=== PATIENT | male | born 1975 | race American Indian/Alaskan Native ===

== ENCOUNTER 2017-11-30 00:39 | Inpatient (IN) | payer OTHER ==
[2017-11-30 01:43] LABS: Basophils # (Auto) 0.1 K/mm3 (0.0-0.1); Basophils % (Auto) 0.9 % (0.0-1.8); Eosinophils # (Auto) 0.1 K/mm3 (0.0-0.4); Eosinophils % (Auto) 0.7 % (0.0-4.3); Hematocrit 38.4 % (35.5-45.6); Hemoglobin 12.1 gm/dl (11.8-15.2); Lymphocytes # (Auto) 2.2 K/mm3 (1.2-5.4); Lymphocytes % (Auto) 27.2 % (13.4-35.0); Mean Corpuscular HGB Conc 32 % (32-34); Mean Corpuscular Volume 81 fl (84-94); Monocytes # (Auto) 0.4 K/mm3 (0.0-0.8); Monocytes % (Auto) 5.2 % (0.0-7.3); Platelet Count 446 K/mm3 (140-440); Red Blood Count 4.75 M/mm3 (3.65-5.03); Red Cell Distribution Width 19.2 % (13.2-15.2)
[2017-11-30 01:59] LABS: BUN/Creatinine Ratio 20; Blood Urea Nitrogen 16 mg/dL (9-20); Hemolysis Index 5
[2017-11-30 02:05] LABS: Mean Corpuscular Hemoglobin 26 pg (28-32)
[2017-11-30] MEDS ORDERED: XOPENEX IH ONE (02:12)
--- NOTE | 2017-11-30 02:15 | Emergency Department Report ---
HPI - General Chief Complaint: Dyspnea/Respdistress Time Seen by Provider: 11/30/17 01:27 - HPI HPI: 42-year-old male presents to the emergency department with a complaint of a 2 day history of shortness of breath. It is associated with some wheezing, a mixed dry and productive cough. He denies any fever, chest pain, back pain or any swelling to the lower extremities. He tried some nebulizer breathing treatments at home without much relief. He has a history of hypertension, asthma and non-insulin dependent diabetes. He presents with elevated blood pressure but admits to being out of his medications for the past 3-4 months. He is a tobacco smoker but denies any illicit drug use. No recent travel or sick contacts at home. He does not have a primary care physician. ED Past Medical Hx - Past Medical History Hx Hypertension: Yes Hx Diabetes: Yes Hx Psychiatric Treatment: Yes Hx Asthma: Yes Additional medical history: Bronchitis - Surgical History Additional Surgical History: Spleenectomy - Social History Smoking Status: Current Every Day Smoker Substance Use Type: None - Medications Home Medications: Home Medications Medication Instructions Recorded Confirmed Last Taken Type ALBUTEROL Inhaler [ProAir HFA 2 puff IH QID PRN #1 inha 07/05/13 01/26/15 Rx Inhaler] Atenolol [Tenormin] 25 mg PO DAILY 30 Days tablet 03/11/14 01/26/15 Unknown Rx Enalapril Maleate [Vasotec] 20 mg PO DAILY 30 Days tablet 03/11/14 01/26/15 Unknown Rx Hydrochlorothiazide [HCTZ] 25 mg PO QDAY 30 Days tablet 03/11/14 01/26/15 Unknown Rx metFORMIN [Glucophage] 500 mg PO BID 01/26/15 01/26/15 Unknown History metFORMIN [Glucophage] 500 mg PO BID 01/27/15 01/27/15 Unknown History ED Review of Systems ROS: Stated complaint: LIBAN Other details as noted in HPI Comment: All other systems reviewed and negative Constitutional: denies: chills, fever Eyes: denies: eye pain, eye discharge, vision change ENT: denies: ear pain, throat pain Respiratory: cough, shortness of breath, wheezing Cardiovascular: denies: chest pain, palpitations Gastrointestinal: denies: abdominal pain, nausea, diarrhea Genitourinary: denies: urgency, dysuria Musculoskeletal: denies: back pain, joint swelling, arthralgia Skin: denies: rash, lesions Neurological: denies: headache, weakness, paresthesias Physical Exam - Physical Exam Vital Signs: Vital Signs 11/30/17 11/30/17 11/30/17 00:59 02:08 02:09 Temperature 97.5 F L Pulse Rate 103 H Respiratory 18 18 Rate Blood Pressure 126/79 [Left] O2 Sat by Pulse 100 96 96 Oximetry Physical Exam: GENERAL: The patient is well-developed well-nourished. HENT: Normocephalic. Atraumatic. Patient has moist mucous membranes. EYES: Extraocular motions are intact. Pupils equal reactive to light bilaterally. NECK: Supple. Trachea is midline. CHEST/LUNGS: Moderate wheezing throughout the chest. There is some tachypnea but no accessory muscle use. There is no respiratory distress noted. HEART/CARDIOVASCULAR: Regular. There is no tachycardia. There is no murmur. ABDOMEN: Abdomen is soft, nontender. Patient has normal bowel sounds. There is no abdominal distention. SKIN: Skin is warm and dry. NEURO: The patient is awake, alert, and oriented. The patient is cooperative. The patient has no focal neurologic deficits. The patient has normal speech. MUSCULOSKELETAL: There is no tenderness or deformity. There is no limitation range of motion. There is no evidence of acute injury. ED Course Vital Signs 11/30/17 11/30/17 11/30/17 00:59 02:08 02:09 Temperature 97.5 F L Pulse Rate 103 H Respiratory 18 18 Rate Blood Pressure 126/79 [Left] O2 Sat by Pulse 100 96 96 Oximetry ED Medical Decision Making - Lab Data Result diagrams: 11/30/17 01:30 11/30/17 01:30 - EKG Data -: EKG Interpreted by Me EKG shows normal: sinus rhythm, axis (left axis deviation), intervals, QRS complexes (left anterior fascicular block), ST-T waves (nonspecific ST-T waves) Rate: tachycardia (105 bpm) - EKG Data When compared to previous EKG there are: previous EKG unavailable Interpretation: other (sinus tachycardia, left anterior fascicular block, nonspecific ST-T waves) - Radiology Data Radiology results: report reviewed, image reviewed interpreted by me: Chest x-ray does not show any acute process. There are no pleural effusions, obvious pneumonia and there is no pneumothorax. CT angiography of the chest does not show any pulmonary embolism or dissection or any other acute process. - Medical Decision Making Patient's been dealing with 2 days of shortness of breath. He is a smoker. He presents with moderate tachycardia and moderate bronchospasm. He received Solu- Medrol in route. He was given some Xopenex and magnesium here. Labs show an elevated d-dimer so CT angiography of the chest was done that does not show any pneumonia, pleural effusion, pulmonary embolism or dissection or any other acute processes. He also has a very elevated BNP level but does not have any lower extremity swelling. Blood pressure was 150/120 when I first saw the patient in the room. He has been out of his blood pressure medications for a couple of months. Despite the treatments given in route and in the emergency department, the patient still complains of this shortness of breath. He will be admitted to the hospital for further evaluation and treatment and has been accepted for admission by the hospitalist, Dr. Robles - Differential Diagnosis COPD, asthma, PE, pneumonia, dysrhythmia Critical Care Time: No Critical care attestation.: If time is entered above; I have spent that time in minutes in the direct care of this critically ill patient, excluding procedure time. ED Disposition Clinical Impression: Bronchospasm, Elevated brain natriuretic peptide (BNP) level, Tobacco use disorder Dyspnea Qualifiers: Dyspnea type: unspecified Qualified Code(s): R06.00 - Dyspnea, unspecified Hypertension Qualifiers: Hypertension type: essential hypertension Qualified Code(s): I10 - Essential ( primary) hypertension Disposition: OP ADMIT IP TO THIS HOSP Is pt being admited?: Yes Condition: Stable Instructions: Hypertension (ED) Referrals: PRIMARY CARE, [Primary Care Provider] - 3-5 Days Time of Disposition: 05:35
--- NOTE | 2017-11-30 03:11 | XRay Report ---
FINAL REPORT PROCEDURE: XR CHEST ROUTINE 2V TECHNIQUE: Chest radiograph anteroposterior view. CPT 85752 HISTORY: Shortness of breath COMPARISON: No prior studies are available for comparison. FINDINGS: Heart: Normal. Mediastinum/Vessels: Normal. Lungs/Pleural space: Normal. Bony thorax: No acute osseous abnormality. Life support devices: None. IMPRESSION: No acute cardiopulmonary abnormality.
--- NOTE | 2017-11-30 03:49 | Cat Scan Report ---
FINAL REPORT PROCEDURE: CT ANGIO CHEST TECHNIQUE: Computerized tomographic angiography of the chest was performed after the IV injection of iodinated nonionic contrast including image processing. The image data was postprocessed using 2-dimensional multiplanar reformatted (MPR) and 3-dimensional (MIP and/or volume rendered) techniques. HISTORY: SOB, elevated dimer COMPARISON: No prior studies are available for comparison. FINDINGS: Heart and pericardium: Normal. Thoracic aorta: Normal. Pulmonary vasculature: There is no evidence of pulmonary arterial emboli. Lymph nodes: No enlarged thoracic lymph nodes. Lungs: There is slight atelectasis in both lower lungs. The remainder of the lungs are clear. No effusion or pneumothorax. The central airway is patent. Pleural space: No effusion, thickening, or pneumothorax. Musculoskeletal structures: No significant abnormality. Upper abdominal structures: No significant abnormality. IMPRESSION: There is no evidence of pulmonary arterial emboli. The lungs are clear without infiltrate, effusion or pneumothorax.
[2017-11-30] MEDS ORDERED: MAGNESIUM SULFATE 2GM/50ML 2 GM/50 ML BAG IV ONE (04:02)
--- NOTE | 2017-11-30 07:33 | Event Note ---
Date: 11/30/17 See Dictated H/p in reports Ac resp failure Copd exacerbation
[2017-11-30] MEDS ORDERED: SODIUM CHLORIDE FLUSH SYRINGE 10 ML IV PRN (08:08)
[2017-11-30] MEDS ORDERED: ZOFRAN IV PRN (08:08)
[2017-11-30] MEDS ORDERED: MORPHINE IV PRN (08:08)
[2017-11-30] MEDS ORDERED: TYLENOL PO PRN (08:08)
[2017-11-30] MEDS ORDERED: DUONEB *Not for PRN Use IH (08:11)
[2017-11-30] MEDS ORDERED: PROAIR IH PRN (08:12)
--- NOTE | 2017-11-30 08:25 | Progress Note ---
Assessment and Plan Assessment and plan: Patient is a 42 yo man with a history of hypertension, dm type 2, depression, asthma and tobacco dependency who presented to [facility] ED with sob and cough. He admits to being out of his medications for the past 3-4 months. D-Dimer 1108.11==>CTA chest IMPRESSION: There is no evidence of pulmonary arterial emboli. The lungs are clear without infiltrate, effusion or pneumothorax. 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 Follow-up on current diagnosis sob and cough. Overnight uneventful. Patient denies any chest pain, nausea/vomiting or severe headaches. Imaging, nursing note, chart, labs and old chart reviewed. Discussed with patient. Hospitalist Physical - Physical exam Narrative exam: GEN: WDWN, NAD, Awake, Alert, Orientated x 3 HEENT: NCAT, EOMI, PERRL, OP Clear NECK: supple, no adenopathy, no thyromegaly, no JVD CVS/HEART: RRR, normal S1S2, pulses present bilaterally CHEST/LUNGS: +bilateral wheezing, diminish bs bilaterally, Symmetrical chest expansion, good air entry bilaterally GI/Abdomen: soft, NTND, good bowel sounds, no guarding or rebound /Bladder: no suprapubic tenderness, no CVA or paraspinal tenderness EXT/Skin: no c/c/e, no obvious rash MSK: FROM x 4 Neuro: CN 2-12 grossly intact, no new focal deficits Psych: calm - Constitutional Vitals: Temp Pulse Resp BP Pulse Ox 98.2 F 98 H 100 H 177/120 98 11/30/17 07:52 11/30/17 07:52 11/30/17 07:52 11/30/17 07:52 11/30/17 06:47 Results - Labs CBC & Chem 7: 11/30/17 01:30 11/30/17 01:30 Labs: Laboratory Last Values WBC 8.2 K/mm3 (4.5-11.0) 11/30/17 01:30 RBC 4.75 M/mm3 (3.65-5.03) 11/30/17 01:30 Hgb 12.1 gm/dl (11.8-15.2) 11/30/17 01:30 Hct 38.4 % (35.5-45.6) 11/30/17 01:30 MCV 81 fl (84-94) L 11/30/17 01:30 MCH 26 pg (28-32) L 11/30/17 01:30 MCHC 32 % (32-34) 11/30/17 01:30 RDW 19.2 % (13.2-15.2) H 11/30/17 01:30 Plt Count 446 K/mm3 (140-440) H 11/30/17 01:30 Lymph % (Auto) 27.2 % (13.4-35.0) 11/30/17 01:30 [place] % (Auto) 5.2 % (0.0-7.3) 11/30/17 01:30 Eos % (Auto) 0.7 % (0.0-4.3) 11/30/17 01:30 Baso % (Auto) 0.9 % (0.0-1.8) 11/30/17 01:30 Lymph # 2.2 K/mm3 (1.2-5.4) 11/30/17 01:30 [place] # 0.4 K/mm3 (0.0-0.8) 11/30/17 01:30 Eos # 0.1 K/mm3 (0.0-0.4) 11/30/17 01:30 Baso # 0.1 K/mm3 (0.0-0.1) 11/30/17 01:30 Seg Neutrophils % 66.0 % (40.0-70.0) 11/30/17 01:30 Seg Neutrophils # 5.4 K/mm3 (1.8-7.7) 11/30/17 01:30 D-Dimer 1108.11 ng/mlDDU (0-234) H 11/30/17 02:05 Sodium 135 mmol/L (137-145) L 11/30/17 01:30 Potassium 4.2 mmol/L (3.6-5.0) 11/30/17 01:30 Chloride 99.3 mmol/L (98-107) 11/30/17 01:30 Carbon Dioxide 24 mmol/L (22-30) 11/30/17 01:30 Anion Gap 16 mmol/L 11/30/17 01:30 BUN 16 mg/dL (9-20) 11/30/17 01:30 Creatinine 0.8 mg/dL (0.8-1.5) 11/30/17 01:30 Estimated GFR > 60 ml/min 11/30/17 01:30 BUN/Creatinine Ratio 20 % 11/30/17 01:30 Glucose 113 mg/dL (75-100) H 11/30/17 01:30 Calcium 8.0 mg/dL (8.4-10.2) L 11/30/17 01:30 Troponin T < 0.010 ng/mL (0.00-0.029) 11/30/17 02:05 NT-Pro-B Natriuret Pep 7768 pg/mL (0-450) H 11/30/17 02:05
[2017-11-30] MEDS ORDERED: D50W (25GM) Syringe IV PRN (08:26)
[2017-11-30] MEDS ORDERED: PULMICORT IH ONE (08:39)
[2017-11-30] MEDS: DUONEB *Not for PRN Use IH SCH ×3 (08:51→20:32)
[2017-11-30] MEDS: PULMICORT IH SCH ×2 (08:53→20:32)
[2017-11-30] MEDS ORDERED: PROVENTIL IH PRN (09:03)
[2017-11-30] MEDS ORDERED: GLUCOPHAGE PO SCH (10:00)
[2017-11-30] MEDS ORDERED: NON-FORMULARY (Enalapril Maleate [Vasotec] 20 MG) PO SCH (10:00)
[2017-11-30] MEDS: LOVENOX SUB-Q SCH (10:32)
[2017-11-30] MEDS: TENORMIN PO SCH (10:35)
[2017-11-30] MEDS: LEVAQUIN 750MG/150ML 750 MG/150 ML BAG IV SCH (10:35)
[2017-11-30] MEDS: HCTZ PO SCH (10:36)
[2017-11-30] MEDS: ZESTRIL PO SCH (10:36)
--- NOTE | 2017-11-30 10:38 | History and Physical Report ---
CHIEF COMPLAINT: Increasing shortness of breath for 2 days. HISTORY OF PRESENT ILLNESS: A 42-year-old male comes in with increasing shortness of breath for last 2 days. Cough productive. No fever, no chills. Increasing shortness of breath. Shortness of breath exacerbated with cough and dust. No relieving factors. Also, the patient is a tobacco smoker. PAST MEDICAL HISTORY: As mentioned, COPD, hypertension, bronchitis. PAST SURGICAL HISTORY: Splenectomy. SOCIAL HISTORY: Current everyday smoker. FAMILY HISTORY: Hypertension. CURRENT MEDICATIONS: Hydrochlorothiazide mg once a day, enalapril, Vasotec 20 mg once a day, atenolol 25 mg once a day. PHYSICAL EXAMINATION: GENERAL: Elderly male, cooperative during examination. VITAL SIGNS: Blood pressure is 126/79, temperature is 97.5, pulse 103, respirations are 18. HEENT: Unremarkable. NECK: Supple. Accessory muscles of respiration are prominent. LUNGS: Bilateral inspiratory and expiratory rhonchi present. Diminished air entry. CARDIOVASCULAR: S1, S2 heard. No gallop, no murmur, no rub. Apical impulse in left fifth intercostal space and midclavicular line. ABDOMEN: Soft and benign. No hepatosplenomegaly. No guarding, no rigidity. Hernial orifices are normal. EXTREMITIES: Good pedal pulses. No pedal edema. CENTRAL NERVOUS SYSTEM: Alert and oriented x 4, nonfocal exam. LABORATORY DATA: White count is 8200, H and H is 12.1 and 38.4, platelet count is 446,000. D-dimer is 1108. Electrolytes are normal. Sodium is slightly low at 135. BNP is 7758. ASSESSMENT AND PLAN: 1. Acute respiratory failure secondary to chronic obstructive pulmonary disease and congestive heart failure. The patient started on IV Solu-Medrol, IV antibiotics, and DuoNeb. 2. Congestive heart failure exacerbation. We will get echocardiogram for evaluation of ejection fraction and valve function. 3. Chronic obstructive pulmonary disease exacerbation as mentioned above Solu-Medrol and IV antibiotics. 4. Hypertension. Continue atenolol, enalapril, and hydrochlorothiazide 5. Diabetes type 2. The patient only on metformin. We will check the A1c and continue metformin. 6. Deep venous thrombosis prophylaxis, heparin. Gastrointestinal prophylaxis, famotidine. [facility]# [id number] BENITO/MICHELLE
[2017-11-30] MEDS: PERCOCET 5/325 PO PRN ×2 (10:43→20:53)
[2017-11-30] MEDS ORDERED: NORMODYNE IV PRN (11:48)
[2017-11-30] MEDS ORDERED: DUONEB *Not for PRN Use IH SCH (12:00)
[2017-11-30] MEDS: HumaLOG SUB-Q SCH ×3 (13:02→21:12)
[2017-11-30] MEDS: SODIUM CHLORIDE FLUSH SYRINGE 10 ML IV SCH ×2 (14:03→21:12)
[2017-11-30] MEDS: NORVASC PO SCH (14:44)
[2017-11-30] MEDS: CATAPRES PO SCH ×2 (14:45→21:11)
[2017-11-30] MEDS: APRESOLINE IV PRN ×2 (17:35→23:57)
[2017-12-01] MEDS: DUONEB *Not for PRN Use IH SCH ×4 (01:39→19:54)
[2017-12-01 06:37] LABS: Mean Corpuscular HGB Conc 31 % (32-34); Mean Corpuscular Volume 81 fl (84-94); Platelet Count 465 K/mm3 (140-440); Red Cell Distribution Width 18.6 % (13.2-15.2)
[2017-12-01 06:40] LABS: Alanine Aminotransferase 27 units/L (7-56); Albumin 2.6 g/dL (3.9-5); BUN/Creatinine Ratio 21; Blood Urea Nitrogen 17 mg/dL (9-20); Calcium 8.3 mg/dL (8.4-10.2); Hemolysis Index 3
[2017-12-01 06:42] LABS: Hematocrit 40.3 % (35.5-45.6); Hemoglobin 12.3 gm/dl (11.8-15.2); Mean Corpuscular Hemoglobin 25 pg (28-32)
[2017-12-01] MEDS: PULMICORT IH SCH ×2 (07:42→19:54)
[2017-12-01 07:47] LABS: Basophils % (Manual) 0 % (0.0-1.8); Total Cells Counted 100
[2017-12-01 07:48] LABS: Anisocytosis 1+; Band Neutrophils # (Manual) 2.5 K/mm3; Eosinophils % (Manual) 0 % (0.0-4.3); Platelet Estimate Consistent w Auto; Poikilocytosis 1+
[2017-12-01] MEDS: PERCOCET 5/325 PO PRN ×2 (08:43→21:22)
--- NOTE | 2017-12-01 08:44 | Progress Note ---
Assessment and Plan Assessment and plan: Patient is a 42 yo man with a history of hypertension, dm type 2, depression, asthma and tobacco dependency who presented to [facility] ED with sob and cough. He admits to being out of his medications for the past 3-4 months. D-Dimer 1108.11==>CTA chest IMPRESSION: There is no evidence of pulmonary arterial emboli. The lungs are clear without infiltrate, effusion or pneumothorax. pBNP 7768==>lungs clear on CTA chest -AE COPD: treat with steroids, nebs, iv abx -Accelerated hypertension with urgency: add antihypertensives -Elevated pBNP, ?cause: get ECHO -Type 2 DM: add ssi, ada, stopped metformin due to iv dye with cta, resume in 48 hours -Tobacco dependency: general counsel on stopping -Noncompliance: education and counselling -DVT ppx: sq lovenox bp severely elevated ordered iv hydralazine, added norvasc and oral clonidine==> bp better controlled Echo pending. History Interval history: Patient was seen and examined. Follow-up on current diagnosis sob and cough. Overnight uneventful. Patient denies any chest pain, nausea/vomiting or severe headaches. Imaging, nursing note, chart, labs and old chart reviewed. Discussed with patient. Hospitalist Physical - Physical exam Narrative exam: GEN: WDWN, NAD, Awake, Alert, Orientated x 3 HEENT: NCAT, EOMI, PERRL, OP Clear NECK: supple, no adenopathy, no thyromegaly, no JVD CVS/HEART: RRR, normal S1S2, pulses present bilaterally CHEST/LUNGS: +bilateral wheezing, diminish bs bilaterally, Symmetrical chest expansion, good air entry bilaterally GI/Abdomen: soft, NTND, good bowel sounds, no guarding or rebound /Bladder: no suprapubic tenderness, no CVA or paraspinal tenderness EXT/Skin: no c/c/e, no obvious rash MSK: FROM x 4 Neuro: CN 2-12 grossly intact, no new focal deficits Psych: calm - Constitutional Vitals: Temp Pulse Resp BP Pulse Ox 98.3 F 90 18 143/86 99 12/01/17 05:15 12/01/17 07:21 12/01/17 05:15 12/01/17 05:15 12/01/17 07:21 Results - Labs CBC & Chem 7: 12/01/17 05:32 12/01/17 05:32 Labs: Laboratory Last Values WBC 12.7 K/mm3 (4.5-11.0) H 12/01/17 05:32 RBC 5.00 M/mm3 (3.65-5.03) 12/01/17 05:32 Hgb 12.3 gm/dl (11.8-15.2) 12/01/17 05:32 Hct 40.3 % (35.5-45.6) 12/01/17 05:32 MCV 81 fl (84-94) L 12/01/17 05:32 MCH 25 pg (28-32) L 12/01/17 05:32 MCHC 31 % (32-34) L 12/01/17 05:32 RDW 18.6 % (13.2-15.2) H 12/01/17 05:32 Plt Count 465 K/mm3 (140-440) H 12/01/17 05:32 Lymph % (Auto) 27.2 % (13.4-35.0) 11/30/17 01:30 [place] % (Auto) 5.2 % (0.0-7.3) 11/30/17 01:30 Eos % (Auto) 0.7 % (0.0-4.3) 11/30/17 01:30 Baso % (Auto) 0.9 % (0.0-1.8) 11/30/17 01:30 Lymph # 2.2 K/mm3 (1.2-5.4) 11/30/17 01:30 [place] # 0.4 K/mm3 (0.0-0.8) 11/30/17 01:30 Eos # 0.1 K/mm3 (0.0-0.4) 11/30/17 01:30 Baso # 0.1 K/mm3 (0.0-0.1) 11/30/17 01:30 Add Manual Diff Complete 12/01/17 05:32 Total Counted 100 12/01/17 05:32 Seg Neutrophils % Millinery Designer 12/01/17 05:32 Seg Neuts % (Manual) 71.0 % (40.0-70.0) H 12/01/17 05:32 Band Neutrophils % 20.0 % 12/01/17 05:32 Lymphocytes % (Manual) 5.0 % (13.4-35.0) L 12/01/17 05:32 Reactive Lymphs % (Man) 0 % 12/01/17 05:32 Monocytes % (Manual) 4.0 % (0.0-7.3) 12/01/17 05:32 Eosinophils % (Manual) 0 % (0.0-4.3) 12/01/17 05:32 Basophils % (Manual) 0 % (0.0-1.8) 12/01/17 05:32 Metamyelocytes % 0 % 12/01/17 05:32 Myelocytes % 0 % 12/01/17 05:32 Promyelocytes % 0 % 12/01/17 05:32 Blast Cells % 0 % 12/01/17 05:32 Nucleated RBC % Not Reportable 12/01/17 05:32 Seg Neutrophils # 5.4 K/mm3 (1.8-7.7) 11/30/17 01:30 Seg Neutrophils # Man 9.0 K/mm3 (1.8-7.7) H 12/01/17 05:32 Band Neutrophils # 2.5 K/mm3 12/01/17 05:32 Lymphocytes # (Manual) 0.6 K/mm3 (1.2-5.4) L 12/01/17 05:32 Abs React Lymphs (Man) 0.0 K/mm3 12/01/17 05:32 Monocytes # (Manual) 0.5 K/mm3 (0.0-0.8) 12/01/17 05:32 Eosinophils # (Manual) 0.0 K/mm3 (0.0-0.4) 12/01/17 05:32 Basophils # (Manual) 0.0 K/mm3 (0.0-0.1) 12/01/17 05:32 Metamyelocytes # 0.0 K/mm3 12/01/17 05:32 Myelocytes # 0.0 K/mm3 12/01/17 05:32 Promyelocytes # 0.0 K/mm3 12/01/17 05:32 Blast Cells # 0.0 K/mm3 12/01/17 05:32 WBC Morphology Not Reportable 12/01/17 05:32 Hypersegmented Neuts Not Reportable 12/01/17 05:32 Hyposegmented Neuts Not Reportable 12/01/17 05:32 Hypogranular Neuts Not Reportable 12/01/17 05:32 Smudge Cells Not Reportable 12/01/17 05:32 Toxic Granulation Not Reportable 12/01/17 05:32 Toxic Vacuolation Not Reportable 12/01/17 05:32 Dohle Bodies Not Reportable 12/01/17 05:32 Pelger-Huet Anomaly Not Reportable 12/01/17 05:32 Amanda Rods Not Reportable 12/01/17 05:32 Platelet Estimate Consistent w auto 12/01/17 05:32 Clumped Platelets Not Reportable 12/01/17 05:32 Plt Clumps, EDTA Not Reportable 12/01/17 05:32 Large Platelets Not Reportable 12/01/17 05:32 Giant Platelets Not Reportable 12/01/17 05:32 Platelet Satelliting Not Reportable 12/01/17 05:32 Plt Morphology Comment Not Reportable 12/01/17 05:32 RBC Morphology Not Reportable 12/01/17 05:32 Dimorphic RBCs Not Reportable 12/01/17 05:32 Polychromasia Not Reportable 12/01/17 05:32 Hypochromasia Not Reportable 12/01/17 05:32 Poikilocytosis 1+ 12/01/17 05:32 Anisocytosis 1+ 12/01/17 05:32 Microcytosis Not Reportable 12/01/17 05:32 Macrocytosis Not Reportable 12/01/17 05:32 Spherocytes Not Reportable 12/01/17 05:32 Pappenheimer Bodies Not Reportable 12/01/17 05:32 Sickle Cells Not Reportable 12/01/17 05:32 Target Cells Not Reportable 12/01/17 05:32 Tear Drop Cells Not Reportable 12/01/17 05:32 Ovalocytes Not Reportable 12/01/17 05:32 Helmet Cells Not Reportable 12/01/17 05:32 [place] Bodies Not Reportable 12/01/17 05:32 [place] Rings Not Reportable 12/01/17 05:32 Al Cells Not Reportable 12/01/17 05:32 Bite Cells Not Reportable 12/01/17 05:32 Crenated Cell Not Reportable 12/01/17 05:32 Elliptocytes Not Reportable 12/01/17 05:32 Acanthocytes (Spur) Not Reportable 12/01/17 05:32 Rouleaux Not Reportable 12/01/17 05:32 Hemoglobin C Crystals Not Reportable 12/01/17 05:32 Schistocytes Not Reportable 12/01/17 05:32 Malaria parasites Not Reportable 12/01/17 05:32 Rudolph Bodies Not Reportable 12/01/17 05:32 Hem Pathologist Commnt No 12/01/17 05:32 D-Dimer 1108.11 ng/mlDDU (0-234) H 11/30/17 02:05 Sodium 136 mmol/L (137-145) L 12/01/17 05:32 Potassium 3.9 mmol/L (3.6-5.0) 12/01/17 05:32 Chloride 97.2 mmol/L (98-107) L 12/01/17 05:32 Carbon Dioxide 25 mmol/L (22-30) 12/01/17 05:32 Anion Gap 18 mmol/L 12/01/17 05:32 BUN 17 mg/dL (9-20) 12/01/17 05:32 Creatinine 0.8 mg/dL (0.8-1.5) 12/01/17 05:32 Estimated GFR > 60 ml/min 12/01/17 05:32 BUN/Creatinine Ratio 21 % 12/01/17 05:32 Glucose 114 mg/dL (75-100) H 12/01/17 05:32 POC Glucose 119 (70-105) H 12/01/17 05:39 Calcium 8.3 mg/dL (8.4-10.2) L 12/01/17 05:32 Total Bilirubin 0.40 mg/dL (0.1-1.2) 12/01/17 05:32 AST 35 units/L (5-40) 12/01/17 05:32 ALT 27 units/L (7-56) 12/01/17 05:32 Alkaline Phosphatase 275 units/L (35-129) H 12/01/17 05:32 Troponin T < 0.010 ng/mL (0.00-0.029) 11/30/17 02:05 NT-Pro-B Natriuret Pep 7768 pg/mL (0-450) H 11/30/17 02:05 Total Protein 7.4 g/dL (6.3-8.2) 12/01/17 05:32 Albumin 2.6 g/dL (3.9-5) L 12/01/17 05:32 Albumin/Globulin Ratio 0.5 % 12/01/17 05:32
[2017-12-01] MEDS: LEVAQUIN 750MG/150ML 750 MG/150 ML BAG IV SCH (10:35)
[2017-12-01] MEDS: TENORMIN PO SCH (11:00)
[2017-12-01] MEDS: ZESTRIL PO SCH (11:00)
[2017-12-01] MEDS: HCTZ PO SCH (11:00)
[2017-12-01] MEDS: CATAPRES PO SCH ×2 (11:00→21:22)
[2017-12-01] MEDS: NORVASC PO SCH (11:00)
[2017-12-01] MEDS: LOVENOX SUB-Q SCH (11:00)
[2017-12-01] MEDS ORDERED: Fluarix Quad 2017-2018(36 MOS+ IM ONE (12:00)
[2017-12-01] MEDS: SODIUM CHLORIDE FLUSH SYRINGE 10 ML IV SCH (21:23)
[2017-12-01] MEDS: HumaLOG SUB-Q SCH (21:23)
[2017-12-02] MEDS: DUONEB *Not for PRN Use IH SCH ×4 (02:01→19:37)
[2017-12-02] MEDS: PULMICORT IH SCH ×2 (07:29→19:37)
[2017-12-02] MEDS: NORVASC PO SCH (09:31)
[2017-12-02] MEDS: HCTZ PO SCH (09:31)
[2017-12-02] MEDS: SODIUM CHLORIDE FLUSH SYRINGE 10 ML IV SCH ×2 (09:32→21:36)
[2017-12-02] MEDS: HumaLOG SUB-Q SCH ×4 (09:33→21:36)
[2017-12-02] MEDS: LEVAQUIN 750MG/150ML 750 MG/150 ML BAG IV SCH (09:34)
[2017-12-02] MEDS: ZESTRIL PO SCH (09:38)
[2017-12-02] MEDS: LOVENOX SUB-Q SCH (09:38)
[2017-12-02] MEDS: PERCOCET 5/325 PO PRN (09:52)
--- NOTE | 2017-12-02 10:43 | Consultation ---
History of Present Illness Consult date: 12/02/17 Requesting physician: BHASKAR GIRALDO Consult reason: arrhythmia History of present illness: The patient is a 42 year old male with a history of hypertension, diabetes, asthma, tobacco abuse who presented with complaints of worsening shortness of breath, wheezing and productive cough over the past several days. He denies any chest pain or palpitations. BP in the ER was 181/128. He states that he has been out of his medications for the past 4 months. Troponin negative. BNP 7768. He was noted to have intermittent 2nd degree heart block Type II on the monitor overnight. Atenolol and clonidine have since been discontinued. Echo showed EF 30-35%, restrictive filling pattern, mild AR, moderate-severe MR, moderate to severe TR, RVSP 55mmHg. No previous diagnosis of heart failure or cardiomyopathy. Past History Past Medical History: diabetes, hypertension, other (asthma) Past Surgical History: Other (splenectomy) Social history: smoking. denies: alcohol abuse Family history: no significant family history Medications and Allergies Allergies Allergy/AdvReac Type Severity Reaction Status Date / Time No Known Allergies Allergy Verified 11/30/17 01:07 Home Medications Medication Instructions Recorded Confirmed Last Taken Type ALBUTEROL Inhaler [ProAir HFA 2 puff IH QID PRN #1 inha 07/05/13 12/02/17 Rx Inhaler] Atenolol [Tenormin] 25 mg PO DAILY 30 Days tablet 03/11/14 12/02/17 Unknown Rx Enalapril Maleate [Vasotec] 20 mg PO DAILY 30 Days tablet 03/11/14 12/02/17 Unknown Rx Hydrochlorothiazide [HCTZ] 25 mg PO QDAY 30 Days tablet 03/11/14 12/02/17 Unknown Rx metFORMIN [Glucophage] 500 mg PO BID 01/27/15 12/02/17 Unknown History Active Meds: Active Medications Acetaminophen (Tylenol) 650 mg PO Q4H PRN PRN Reason: Pain MILD(1-3)/Fever >100.5/LOZA Albuterol (Proventil) 2.5 mg IH Q4HRT PRN PRN Reason: Shortness Of Breath Last Admin: 11/30/17 23:43 Dose: 2.5 mg Albuterol/Ipratropium (Duoneb *Not For Prn Use*) 1 ampul IH Q6HRT [facility] Last Admin: 12/02/17 07:29 Dose: 1 ampul Amlodipine Besylate (Norvasc) 10 mg PO QDAY [facility] Last Admin: 12/02/17 09:31 Dose: 10 mg Budesonide (Pulmicort) 0.5 mg IH Q12HRT [facility] Last Admin: 12/02/17 07:29 Dose: 0.5 mg Dextrose (D50w (25gm) Syringe) 50 ml IV PRN PRN PRN Reason: Hypoglycemia Enoxaparin Sodium (Lovenox) 40 mg SUB-Q QDAY [facility] Last Admin: 12/02/17 09:38 Dose: 40 mg Hydralazine HCl (Apresoline) 10 mg IV Q4HR PRN PRN Reason: Blood Pressure Last Admin: 11/30/17 23:57 Dose: 10 mg Hydrochlorothiazide (Hctz) 25 mg PO QDAY [facility] Last Admin: 12/02/17 09:31 Dose: 25 mg Levofloxacin/Dextrose (Levaquin 750mg/150ml) 750 mg in 150 mls @ 100 mls/hr IV Q24HR [facility]; Protocol Last Admin: 12/02/17 09:34 Dose: 100 mls/hr Insulin Human Lispro (Humalog) 0 unit SUB-Q ACHS [facility]; Protocol Last Admin: 12/02/17 09:33 Dose: 2 unit Lisinopril (Zestril) 40 mg PO DAILY [facility] Last Admin: 12/02/17 09:38 Dose: 40 mg Methylprednisolone Sodium Succinate (Solu-Medrol) 125 mg IV Q8HR [facility] Last Admin: 12/01/17 21:22 Dose: 125 mg Morphine Sulfate (Morphine) 2 mg IV Q4H PRN PRN Reason: Pain, Moderate (4-6) Ondansetron HCl (Zofran) 4 mg IV Q8H PRN PRN Reason: Nausea And Vomiting Oxycodone/Acetaminophen (Percocet 5/325) 1 tab PO Q6H PRN PRN Reason: Pain, Moderate (4-6) Last Admin: 12/02/17 09:52 Dose: 1 tab Sodium Chloride (Sodium Chloride Flush Syringe 10 Ml) 10 ml IV BID [facility] Last Admin: 12/02/17 09:32 Dose: 10 ml Sodium Chloride (Sodium Chloride Flush Syringe 10 Ml) 10 ml IV PRN PRN PRN Reason: LINE FLUSH Review of Systems Constitutional: no fever, no chills Ears, nose, mouth and throat: no nasal congestion, no nasal discharge Cardiovascular: shortness of breath, dyspnea on exertion, no chest pain, no orthopnea, no palpitations Respiratory: cough, shortness of breath, dyspnea on exertion, wheezing Gastrointestinal: no abdominal pain, no nausea, no vomiting, no diarrhea Genitourinary Male: no dysuria, no hematuria Musculoskeletal: no neck stiffness, no neck pain Integumentary: no rash, no pruritis Neurological: no parathesias, no numbness, no tingling, no headaches Endocrine: no cold intolerance, no heat intolerance Hematologic/Lymphatic: no easy bruising, no easy bleeding Allergic/Immunologic: no urticaria, no wheezing Physical Examination Last Vital Signs Temp 98.0 F 12/02/17 11:57 Pulse 84 12/02/17 11:57 Resp 16 12/02/17 11:57 BP 174/118 12/02/17 11:57 Pulse Ox 98 12/02/17 11:57 General appearance: no acute distress HEENT: Positive: PERRL, Normocephaly, Mucus Membranes Moist Neck: Positive: neck supple, trachea midline Cardiac: Positive: Reg Rate and Rhythm, S1/S2, S3, Systolic Murmur Lungs: Positive: clear to auscultation Neuro: Positive: Grossly Intact Abdomen: Positive: Soft, Active Bowel Sounds. Negative: Tender Skin: Positive: Clear. Negative: Rash Extremities: Present: normal. Absent: edema Results 12/01/17 05:32 12/01/17 05:32 - Imaging and Cardiology Echo: report reviewed (11/2017: EF 30-35%, restrictive filling pattern, mild AR, moderate-severe MR, moderate to severe TR, RVSP 55mmHg) EKG: image reviewed EKG interpretations - Telemetry EKG Rhythm: Sinus Rhythm - EKG Sinus rhythms and dysrhythmias: sinus rhythm AV and intraventricular conduction: left anterior fascicular Repolarization changes or abnormalities: nonspecific abnormality, ST segment, and/or T wave Assessment and Plan Assessment/Plan: Intermittent 2nd degree heart block Type II Asymptomatic Atenolol and clonidine discontinued Continue to observe on the monitor Acute on chronic HFrEF EF 30-35% Initiate lasix 40mg IV daily Strict I/Os Continue lisinopril 40mg daily No beta piero due to intermittent HB Cardiomyopathy EF 30-35%-->new diagnosis Lexiscan stress test in am Hypertension Diabetes Asthma Tobacco abuse The patient has been seen in conjunction with Dr. Lancaster who agrees with the assessment and plan of care.
--- NOTE | 2017-12-02 12:22 | Progress Note ---
Assessment and Plan Assessment and plan: Patient is a 42 yo man with a history of hypertension, dm type 2, depression, asthma and tobacco dependency who presented to [facility] ED with sob and cough. He admits to being out of his medications for the past 3-4 months. D-Dimer 1108.11==>CTA chest IMPRESSION: There is no evidence of pulmonary arterial emboli. The lungs are clear without infiltrate, effusion or pneumothorax. pBNP 7768==>lungs clear on CTA chest -AE COPD: treat with steroids, nebs, iv abx -Accelerated hypertension with urgency: add antihypertensives -Elevated pBNP, suspected Acute systolic heart failure, poa: get ECHO pending -Type 2 DM: add ssi, ada, stopped metformin due to iv dye with cta, resume in 48 hours -Tobacco dependency: pastoral counselor on stopping -Noncompliance: education and counselling -DVT ppx: sq lovenox bp severely elevated ordered iv hydralazine, added norvasc and oral clonidine==> bp better controlled Echo pending. Patient had episode of bradycardia, ?CHB 1257 am, i looked at tele strip, looks likes type 2 av block, consulted Cardiology. Hold bblocker History Interval history: Patient was seen and examined. Follow-up on current diagnosis sob and cough. Overnight uneventful. Patient denies any chest pain, nausea/vomiting or severe headaches. Imaging, nursing note, chart, labs and old chart reviewed. Discussed with patient. Hospitalist Physical - Physical exam Narrative exam: GEN: WDWN, NAD, Awake, Alert, Orientated x 3 HEENT: NCAT, EOMI, PERRL, OP Clear NECK: supple, no adenopathy, no thyromegaly, no JVD CVS/HEART: RRR, normal S1S2, pulses present bilaterally CHEST/LUNGS: +bilateral wheezing, diminish bs bilaterally, Symmetrical chest expansion, good air entry bilaterally GI/Abdomen: soft, NTND, good bowel sounds, no guarding or rebound /Bladder: no suprapubic tenderness, no CVA or paraspinal tenderness EXT/Skin: no c/c/e, no obvious rash MSK: FROM x 4 Neuro: CN 2-12 grossly intact, no new focal deficits Psych: calm - Constitutional Vitals: Temp Pulse Resp BP Pulse Ox 98.0 F 84 16 174/118 98 12/02/17 11:57 12/02/17 11:57 12/02/17 11:57 12/02/17 11:57 12/02/17 11:57 General appearance: Present: no acute distress Results - Labs CBC & Chem 7: 12/01/17 05:32 12/01/17 05:32 Labs: Laboratory Last Values WBC 12.7 K/mm3 (4.5-11.0) H 12/01/17 05:32 RBC 5.00 M/mm3 (3.65-5.03) 12/01/17 05:32 Hgb 12.3 gm/dl (11.8-15.2) 12/01/17 05:32 Hct 40.3 % (35.5-45.6) 12/01/17 05:32 MCV 81 fl (84-94) L 12/01/17 05:32 MCH 25 pg (28-32) L 12/01/17 05:32 MCHC 31 % (32-34) L 12/01/17 05:32 RDW 18.6 % (13.2-15.2) H 12/01/17 05:32 Plt Count 465 K/mm3 (140-440) H 12/01/17 05:32 Lymph % (Auto) 27.2 % (13.4-35.0) 11/30/17 01:30 [place] % (Auto) 5.2 % (0.0-7.3) 11/30/17 01:30 Eos % (Auto) 0.7 % (0.0-4.3) 11/30/17 01:30 Baso % (Auto) 0.9 % (0.0-1.8) 11/30/17 01:30 Lymph # 2.2 K/mm3 (1.2-5.4) 11/30/17 01:30 Harding # 0.4 K/mm3 (0.0-0.8) 11/30/17 01:30 Eos # 0.1 K/mm3 (0.0-0.4) 11/30/17 01:30 Baso # 0.1 K/mm3 (0.0-0.1) 11/30/17 01:30 Add Manual Diff Complete 12/01/17 05:32 Total Counted 100 12/01/17 05:32 Seg Neutrophils % Shareholder 12/01/17 05:32 Seg Neuts % (Manual) 71.0 % (40.0-70.0) H 12/01/17 05:32 Band Neutrophils % 20.0 % 12/01/17 05:32 Lymphocytes % (Manual) 5.0 % (13.4-35.0) L 12/01/17 05:32 Reactive Lymphs % (Man) 0 % 12/01/17 05:32 Monocytes % (Manual) 4.0 % (0.0-7.3) 12/01/17 05:32 Eosinophils % (Manual) 0 % (0.0-4.3) 12/01/17 05:32 Basophils % (Manual) 0 % (0.0-1.8) 12/01/17 05:32 Metamyelocytes % 0 % 12/01/17 05:32 Myelocytes % 0 % 12/01/17 05:32 Promyelocytes % 0 % 12/01/17 05:32 Blast Cells % 0 % 12/01/17 05:32 Nucleated RBC % Not Reportable 12/01/17 05:32 Seg Neutrophils # 5.4 K/mm3 (1.8-7.7) 11/30/17 01:30 Seg Neutrophils # Man 9.0 K/mm3 (1.8-7.7) H 12/01/17 05:32 Band Neutrophils # 2.5 K/mm3 12/01/17 05:32 Lymphocytes # (Manual) 0.6 K/mm3 (1.2-5.4) L 12/01/17 05:32 Abs React Lymphs (Man) 0.0 K/mm3 12/01/17 05:32 Monocytes # (Manual) 0.5 K/mm3 (0.0-0.8) 12/01/17 05:32 Eosinophils # (Manual) 0.0 K/mm3 (0.0-0.4) 12/01/17 05:32 Basophils # (Manual) 0.0 K/mm3 (0.0-0.1) 12/01/17 05:32 Metamyelocytes # 0.0 K/mm3 12/01/17 05:32 Myelocytes # 0.0 K/mm3 12/01/17 05:32 Promyelocytes # 0.0 K/mm3 12/01/17 05:32 Blast Cells # 0.0 K/mm3 12/01/17 05:32 WBC Morphology Not Reportable 12/01/17 05:32 Hypersegmented Neuts Not Reportable 12/01/17 05:32 Hyposegmented Neuts Not Reportable 12/01/17 05:32 Hypogranular Neuts Not Reportable 12/01/17 05:32 Smudge Cells Not Reportable 12/01/17 05:32 Toxic Granulation Not Reportable 12/01/17 05:32 Toxic Vacuolation Not Reportable 12/01/17 05:32 Dohle Bodies Not Reportable 12/01/17 05:32 Pelger-Huet Anomaly Not Reportable 12/01/17 05:32 Amanda Rods Not Reportable 12/01/17 05:32 Platelet Estimate Consistent w auto 12/01/17 05:32 Clumped Platelets Not Reportable 12/01/17 05:32 Plt Clumps, EDTA Not Reportable 12/01/17 05:32 Large Platelets Not Reportable 12/01/17 05:32 Giant Platelets Not Reportable 12/01/17 05:32 Platelet Satelliting Not Reportable 12/01/17 05:32 Plt Morphology Comment Not Reportable 12/01/17 05:32 RBC Morphology Not Reportable 12/01/17 05:32 Dimorphic RBCs Not Reportable 12/01/17 05:32 Polychromasia Not Reportable 12/01/17 05:32 Hypochromasia Not Reportable 12/01/17 05:32 Poikilocytosis 1+ 12/01/17 05:32 Anisocytosis 1+ 12/01/17 05:32 Microcytosis Not Reportable 12/01/17 05:32 Macrocytosis Not Reportable 12/01/17 05:32 Spherocytes Not Reportable 12/01/17 05:32 Pappenheimer Bodies Not Reportable 12/01/17 05:32 Sickle Cells Not Reportable 12/01/17 05:32 Target Cells Not Reportable 12/01/17 05:32 Tear Drop Cells Not Reportable 12/01/17 05:32 Ovalocytes Not Reportable 12/01/17 05:32 Helmet Cells Not Reportable 12/01/17 05:32 [place] Bodies Not Reportable 12/01/17 05:32 [place] Rings Not Reportable 12/01/17 05:32 Al Cells Not Reportable 12/01/17 05:32 Bite Cells Not Reportable 12/01/17 05:32 Crenated Cell Not Reportable 12/01/17 05:32 Elliptocytes Not Reportable 12/01/17 05:32 Acanthocytes (Spur) Not Reportable 12/01/17 05:32 Rouleaux Not Reportable 12/01/17 05:32 Hemoglobin C Crystals Not Reportable 12/01/17 05:32 Schistocytes Not Reportable 12/01/17 05:32 Malaria parasites Not Reportable 12/01/17 05:32 Rudolph Bodies Not Reportable 12/01/17 05:32 Hem Pathologist Commnt No 12/01/17 05:32 D-Dimer 1108.11 ng/mlDDU (0-234) H 11/30/17 02:05 Sodium 136 mmol/L (137-145) L 12/01/17 05:32 Potassium 3.9 mmol/L (3.6-5.0) 12/01/17 05:32 Chloride 97.2 mmol/L (98-107) L 12/01/17 05:32 Carbon Dioxide 25 mmol/L (22-30) 12/01/17 05:32 Anion Gap 18 mmol/L 12/01/17 05:32 BUN 17 mg/dL (9-20) 12/01/17 05:32 Creatinine 0.8 mg/dL (0.8-1.5) 12/01/17 05:32 Estimated GFR > 60 ml/min 12/01/17 05:32 BUN/Creatinine Ratio 21 % 12/01/17 05:32 Glucose 114 mg/dL (75-100) H 12/01/17 05:32 POC Glucose 164 (70-105) H 12/02/17 05:36 Calcium 8.3 mg/dL (8.4-10.2) L 12/01/17 05:32 Magnesium 2.00 mg/dL (1.7-2.3) 12/02/17 09:39 Total Bilirubin 0.40 mg/dL (0.1-1.2) 12/01/17 05:32 AST 35 units/L (5-40) 12/01/17 05:32 ALT 27 units/L (7-56) 12/01/17 05:32 Alkaline Phosphatase 275 units/L (35-129) H 12/01/17 05:32 Troponin T < 0.010 ng/mL (0.00-0.029) 12/02/17 09:39 NT-Pro-B Natriuret Pep 7768 pg/mL (0-450) H 11/30/17 02:05 Total Protein 7.4 g/dL (6.3-8.2) 12/01/17 05:32 Albumin 2.6 g/dL (3.9-5) L 12/01/17 05:32 Albumin/Globulin Ratio 0.5 % 12/01/17 05:32
[2017-12-02] MEDS: LASIX IV SCH (14:32)
[2017-12-03] MEDS: APRESOLINE IV PRN (03:30)
[2017-12-03] MEDS ORDERED: LEXISCAN IV ONE ×2 (09:16→09:27)
[2017-12-03] MEDS ORDERED: LEVAQUIN PO SCH (10:00)
[2017-12-03] MEDS: DUONEB *Not for PRN Use IH SCH ×2 (10:29→14:06)
[2017-12-03] MEDS: PULMICORT IH SCH (10:29)
--- NOTE | 2017-12-03 11:05 | Progress Note ---
Assessment and Plan Assessment/Plan: Intermittent 2nd degree heart block Type II No reoccurrence noted on telemetry overnight Asymptomatic Atenolol and clonidine discontinued Continue to observe on the monitor Acute on chronic HFrEF EF 30-35% Cont lasix 40mg IV daily Strict I/Os Continue lisinopril 40mg daily No beta piero due to intermittent HB Cardiomyopathy EF 30-35%-->new diagnosis Lexiscan stress test this AM negative for ischemia, EF 38% Mod to severe MR / mod to severe TR RVSP 55mmHg Minimal pericardial effusion Hypertension Optimize anti-hypertensive regimen - initiate hydralazine Diabetes Asthma Tobacco abuse The patient has been seen in conjunction with Dr. Lancaster who agrees with the assessment and plan of care. Subjective Date of service: 12/03/17 Principal diagnosis: HF Interval history: pt for stress test this AM. no current complaints. tele reviewed with no bradyarrhythmias noted overnight. Objective Last Vital Signs Temp 97.6 F 12/03/17 07:37 Pulse 91 H 12/03/17 10:33 Resp 20 12/03/17 10:33 BP 175/113 12/03/17 07:37 Pulse Ox 97 12/03/17 07:37 - Physical Examination General: No Apparent Distress HEENT: Positive: PERRL, Normocephaly, Mucus Membranes Moist Neck: Positive: neck supple, trachea midline Cardiac: Positive: Reg Rate and Rhythm, S1/S2 Lungs: Positive: Decreased Breath Sounds Neuro: Positive: Grossly Intact Abdomen: Positive: Soft, Active Bowel Sounds. Negative: Tender Skin: Positive: Clear. Negative: Rash Extremities: Present: normal. Absent: edema - Imaging and Cardiology EKG: image reviewed Echo: report reviewed (11/2017: EF 30-35%, restrictive filling pattern, mild AR, moderate-severe MR, moderate to severe TR, RVSP 55mmHg) - EKG Sinus rhythms and dysrhythmias: sinus rhythm AV and intraventricular conduction: left anterior fascicular Repolarization changes or abnormalities: nonspecific abnormality, ST segment, and/or T wave
[2017-12-03] MEDS: ZESTRIL PO SCH (11:17)
[2017-12-03] MEDS: NORVASC PO SCH (11:17)
[2017-12-03] MEDS: PERCOCET 5/325 PO PRN (11:18)
[2017-12-03] MEDS: SODIUM CHLORIDE FLUSH SYRINGE 10 ML IV SCH (11:19)
[2017-12-03] MEDS: HCTZ PO SCH (11:19)
[2017-12-03] MEDS: HumaLOG SUB-Q SCH ×2 (11:20→12:16)
[2017-12-03] MEDS: LASIX IV SCH (11:20)
[2017-12-03] MEDS: LOVENOX SUB-Q SCH (11:21)
[2017-12-03 13:02] VITALS: BP 173/110
[2017-12-03] MEDS ORDERED: APRESOLINE PO SCH (14:00)
== END 2017-12-03 17:45 | disposition left against medical advice (07) | DRG 291 ==
LOC: ED 00:39 → 4A 08:08
PROVIDERS: ADMIT Internal Medicine; ATTEND Internal Medicine
PROC: 3E0234Z Introduction of Serum, Toxoid and Vaccine into Muscle, Percutaneous Approach (ICD-10-PCS; principal; 2017-12-01)
DX: I11.0 Hypertensive heart disease with heart failure (principal); J96.21 Acute and chronic respiratory failure with hypoxia; I31.3 Pericardial effusion (noninflammatory); J44.1 Chronic obstructive pulmonary disease with (acute) exacerbation; I44.1 Atrioventricular block, second degree; I50.9 Heart failure, unspecified; I42.9 Cardiomyopathy, unspecified; E11.9 Type 2 diabetes mellitus without complications; F17.200 Nicotine dependence, unspecified, uncomplicated; F32.9 Major depressive disorder, single episode, unspecified; Z91.19 Patient's noncompliance with other medical treatment and regimen; Z79.899 Other long term (current) drug therapy; Z90.81 Acquired absence of spleen; Z23 Encounter for immunization; Z82.49 Family history of ischemic heart disease and other diseases of the circulatory system
CPT/HCPCS: 36415; 71046; 71275; 78452; 80048; 80053; 82962; 83735; 83880; 84443; 84484; 85007; 85025; 85379; 90686; 93005; 93010; 93017; 93306; 94640; 99406; A9502; J0360; J1650; J1815; J1940; J1956; J2785; J2930; J3475; Q9967

== ENCOUNTER 2020-11-23 10:49 | Day surgery (SDC) | payer MEDICAID, OTHER ==
[~2020-11-23 10:49] MED LIST: BUPIVACAINE/PF (0.5%) 5 MG/1 ML 30 ML VIAL INFILTRATI ONE; HEPARIN 10,000 UNITS/10 ML VIAL IV ONE; HEPARIN 10,000 UNITS/10 ML VIAL ONE; LIDOCAINE PF 100 MG/5 ML (CARDIAC SYRINGE) IV ONE; SODIUM CHLORIDE 0.9% 250 ML IVPB IV ONE; SODIUM CHLORIDE 0.9% 250ML 0 ML ONE; SODIUM CHLORIDE 0.9% 500 ML 500 ML ONE; SODIUM CHLORIDE 0.9% 500 ML IVPB IRRIGATION ONE; ceFAZolin/STERILE WATER 2 GM/20 ML SYRINGE IV NR; propofoL 200 MG/20 ML VIAL IV ONE; rifAMPin 600 MG VIAL ONE
[2020-11-23] MEDS ORDERED: SODIUM CHLORIDE 0.9% 1000 ML 1,000 ML ONE (11:06)
[2020-11-23] MEDS ORDERED: DEXTROSE 50% IN WATER (25GM) 50 ML SYRINGE IV SCH (11:47)
[2020-11-23] MEDS ORDERED: DEXTROSE 50% IN WATER (25GM) 50 ML SYRINGE IV ONE (11:49)
[2020-11-23 11:57] LABS: Hematocrit 34.8 % (35.5-45.6); Hemoglobin 11.7 gm/dl (11.8-15.2)
[2020-11-23] MEDS ORDERED: SODIUM CHLORIDE 0.9% 1000 ML 1,000 ML IV SCH (12:00)
[2020-11-23] MEDS ORDERED: ONDANSETRON 4 MG/2 ML INJ IV PRN (12:20)
[2020-11-23] MEDS ORDERED: HYDROmorphone 1 MG/1 ML INJ IV PRN ×2 (12:20)
--- NOTE | 2020-11-23 12:24 | Anesthesia Day of Surgery ---
Anesthesia Day of Surgery - Day of Surgery Patient Examined: Yes Patient H&P Reviewed: Yes Patient is NPO: Yes Beta Blockers: Yes
--- NOTE | 2020-11-23 12:28 | Anesthesia Consultation ---
Anesthesia Consult and Med Hx Date of service: 11/23/20 - Airway Anesthetic Teeth Evaluation: Good (Missing) ROM Head & Neck: Adequate Mental/Hyoid Distance: Adequate Mallampati Class: Class II Intubation Access Assessment: Good - Pulmonary Exam CTA: No (Chronic Wheezing) - Pre-Operative Health Status ASA Pre-Surgery Classification: ASA4 Proposed Anesthetic Plan: General (BLOCK; GA if needed) - Pulmonary Hx Smoking: Yes (IPPD) Hx Asthma: Yes COPD: Yes Home Oxygen Therapy: Yes (While on HD) Hx Sleep Apnea: No (NEEDS TESTING -SNORES) - Cardiovascular System Hx Hypertension: Yes (Malignant and at baseline) Hx Heart Attack/AMI: No - Central Nervous System Hx Back Pain: Yes (AND NECK) Hx Psychiatric Problems: Yes (Anxiety/Depression; HX SUICIDAL BEHAVIOR) - Gastrointestinal Hx Gastroesophageal Reflux Disease: No - Endocrine Hx Renal Disease: Yes (Last HD yesterday) Hx End Stage Renal Disease: Yes (PERMACATH RT UPPER CHEST) Hx Non-Insulin Dependent Diabetes: Yes - Hematic Hx Anemia: No - Other Systems Hx Alcohol Use: No Hx Substance Use: Yes (HX COCAINE & METH USE NONE FOR 2 YRS NOW) Hx Cancer: No Hx Obesity: Yes - Additional Comments Anesthesia Medical History Comments: [id number]. Intermittent 2nd degree heart block Type II. Acute on chronic HFrEF EF 30-35%. Cardiomyopathy EF 30-35%-->new diagnosis. Lexiscan stress test this AM negative for ischemia, EF 38%. Mod to severe MR / mod to severe TR. RVSP 55mmHg. Minimal pericardial effusion. Hypertension. Diabetes. Asthma. Tobacco abuse
[2020-11-23] MEDS ORDERED: carvediloL 12.5 MG TAB PO NR (12:30)
[2020-11-23] MEDS ORDERED: MIDAZOLAM 2 MG/2 ML INJ ONE (12:35)
[2020-11-23] MEDS ORDERED: MIDAZOLAM 2 MG/2 ML INJ IV NR (12:35)
[2020-11-23] MEDS ORDERED: SODIUM CHLORIDE P/F VIAL 10 ML 0 ML ONE (13:08)
[2020-11-23] MEDS ORDERED: fentaNYL 100 MCG/2 ML INJ ONE (13:38)
[2020-11-23] MEDS ORDERED: SODIUM CHLORIDE 0.9% 500 ML IVPB IRRIGATION ONE (14:12)
[2020-11-23] MEDS ORDERED: HEPARIN 10,000 UNITS/10 ML VIAL IV ONE (14:12)
[2020-11-23] MEDS ORDERED: SODIUM CHLORIDE 0.9% IRR 1,500 ML BOTTLE IR ONE (14:13)
--- NOTE | 2020-11-23 15:04 | Short Stay Summary ---
Short Stay Documentation Date of service: 11/23/20 Narrative H&P: See H&P - History H&P: obtained from office - Allergies and Medications Current Medications: Allergies No Known Allergies Allergy (Verified 11/30/17 01:07) Home Medications Medication Instructions Recorded Confirmed Last Taken Type RX: Albuterol Mdi (or & Nicu Only) 2 puff IH QID PRN #1 inha 12/03/17 Unknown Rx [ProAir HFA Inhaler] Aspirin 81 mg PO DAILY 11/16/20 11/16/20 Unknown History Dialyvite 800-Zinc 15 mg Tab 1 tab PO DAILY 11/16/20 11/16/20 Unknown History Ergocalciferol [Vitamin D2] 1.25 mg PO 1XW 11/16/20 11/16/20 Unknown History Lasix 20 mg PO DAILY 11/16/20 11/16/20 Unknown History carvediloL [Coreg] 12.5 mg PO BID 11/16/20 11/16/20 Unknown History Active Medications Cefazolin Sodium (Cefazolin/Sterile Water 2 Gm/20 Ml Syringe) 2 gm IV PREOP NR Stop: 11/23/20 23:59 Dextrose (Dextrose 50% In Water (25gm) 50 Ml Syringe) 16.66 ml IV ONCE EDDEI; Protocol Stop: 11/23/20 16:00 Hydromorphone HCl (Hydromorphone 1 Mg/1 Ml Inj) 0.25 mg IV Q10MIN PRN PRN Reason: Pain, Moderate (4-6) Stop: 11/23/20 23:59 Hydromorphone HCl (Hydromorphone 1 Mg/1 Ml Inj) 0.5 mg IV Q10MIN PRN PRN Reason: Pain , Severe (7-10) Stop: 11/23/20 23:59 Sodium Chloride (Nacl 0.9% 1000 Ml) 1,000 mls @ 42 mls/hr IV DIRECT EDDIE Midazolam HCl (Midazolam 2 Mg/2 Ml Inj) 1 mg IV PREOP NR Stop: 11/23/20 20:00 Ondansetron HCl (Ondansetron 4 Mg/2 Ml Inj) 4 mg IV ONCE PRN PRN Reason: Nausea And Vomiting Stop: 11/23/20 23:59 - Brief post op/procedure progress note Date of procedure: 11/23/20 Pre-op diagnosis: End-Stage Renal Disease Post-op diagnosis: same Procedure: Creation of Left Radiocephalic Arteriovenous Fistula Anesthesia: MAC, regional Surgeon: KATY SHARPE Estimated blood loss: minimal Condition: stable - Disposition Condition at discharge: Good Disposition: DC-01 TO HOME OR SELFCARE Short Stay Discharge Plan Activity: other (No heavy lifting with left arm for 2 weeks.) Wound: open to air, keep clean and dry, other (Okay to wash the left arm wound with soap and water but do not soak in water for 2 weeks.) Follow up with: KATY SHARPE MD [Staff Physician] - 14 Days Prescriptions: HYDROcodone/APAP 7.5-325 [[place] 7.5/325] 1 each PO Q6HR PRN #30 tablet PRN Reason: Pain
--- NOTE | 2020-11-23 15:12 | Operative Report ---
Operative Report Operative Report: Date of procedure: 11/23/2020 Pre-operative diagnosis: End-Stage Renal Disease Post-operative diagnosis: End-Stage Renal Disease Procedure(s): Creation of Left Oliva Fistula Surgeon: Sergio Daniels MD Rebeamer: None Anesthesia: Regional/MAC EBL: Minimal Counts: Correct Complications: None Condition: Stable Findings: Successful creation of left arm AV fistula with palpable thrill at the completion of the case. Specimen: None Indication: The patient is a 45-year-old male with a history of end-stage renal disease who is currently on hemodialysis through a right internal jugular permacath. He is in need of long-term dialysis access and was found to be a suitable candidate for creation of an arteriovenous fistula. He was given the risk, benefits, and alternative procedures and consented to the procedure. Description of Procedure: Prior to being transported to the operating room the patient had a regional block of his left upper extremity performed in the preoperative area. The patient was then transported to the operating room and adequately sedated. Once he was sedated his left arm was prepped and draped in normal sterile fashion. A longitudinal incision was then created on the distal wrist, centered between the cephalic vein and the radial artery. The dissection was carried down to the radial artery using sharp dissection and the radial artery was dissected circumferentially and controlled with vessel loops. The cephalic vein was then dissected circumferentially, ligating side branches with 3-0 silk ties and dividing them. The cephalic vein was then divided distally transpose to the radial artery. A 3 Arnol was then advanced through the cephalic vein proximally to ensure patency. The vein was then flushed with heparinized saline and control of the bulldog clamp. The patient was systemically heparinized with 3000 units of heparin IV and the radial artery clamped with DeBakey clamps. An arteriotomy was then created using an 11 blade and Bauer scissors. An end-to-side anastomosis was created between the cephalic vein and the radial ar jaylyn using a single 6-0 Prolene in running fashion. Prior to completing the anastomosis I flashed the artery both retrograde and antegrade and advanced a 3 Arnol into the proximal portion of the artery to break the spasm. I then completed the anastomosis and removed all clamps allowing flow into the fistula which had a palpable thrill. Hemostasis within the wound was achieved with a combination of manual pressure and Quick Clot. Once hemostasis was achieved the wounds were closed in 2 layers using a 3-0 Vicryl in running fashion in the deep dermal layers, 4-0 Monocryl in a running fashion the subcuticular layer, and Dermabond as a dressing. The patient tolerated the procedure well. All sponge, needle, and instrument counts were correct. The patient was taken to the recovery area in stable condition.
[2020-11-23 16:26] VITALS: BP 150/110
--- NOTE | 2020-11-23 16:32 | Post Anesthesia Evaluation ---
- Post Anesthesia Evaluation Patient Participated: Yes Airway Patent: Yes Stable Respiratory Function: Yes Nausea/Vomiting: No Temp > 96.8F: Yes Pain Manageable: Yes Adequeate Hydration: Yes Anesthesia Complications: No Block Receding Appropriately: Yes Patient on Ventilator: No
== END 2020-11-23 17:15 | disposition home or self-care (01) ==
LOC: OR 10:49
PROVIDERS: ATTEND Surgery Vascular Surgery
DX: I13.2 Hypertensive heart and chronic kidney disease with heart failure and with stage 5 chronic kidney disease, or end stage renal disease (principal); E11.22 Type 2 diabetes mellitus with diabetic chronic kidney disease; N18.6 End stage renal disease; I50.9 Heart failure, unspecified; F17.210 Nicotine dependence, cigarettes, uncomplicated; H40.9 Unspecified glaucoma; G43.909 Migraine, unspecified, not intractable, without status migrainosus; E78.00 Pure hypercholesterolemia, unspecified; J44.9 Chronic obstructive pulmonary disease, unspecified; K21.9 Gastro-esophageal reflux disease without esophagitis; E66.9 Obesity, unspecified; F32.9 Major depressive disorder, single episode, unspecified; F41.9 Anxiety disorder, unspecified; Z79.899 Other long term (current) drug therapy; Z79.82 Long term (current) use of aspirin; Z87.440 Personal history of urinary (tract) infections; Z98.890 Other specified postprocedural states; Z68.36 Body mass index [BMI] 36.0-36.9, adult
CPT/HCPCS: 36415; 36821; 82962; 84132; 85014; 85018; C1757; J0690; J1644; J2001; J2250; J2704; J3010; J7030; J7040; 64450; J3490; J7050